=== PATIENT | female | born 1955 | race Two or more races ===

== ENCOUNTER 2025-01-14 20:47 | Emergency (ER) | payer OTHER, MEDICAID ==
[~2025-01-14] VITALS: Ht 160 cm; Wt 113.4 kg
[2025-01-15] MEDS ORDERED: HYDROMORPHONE 1 MG/1 ML DISP.SYRIN ONE ×4 (00:49→21:18)
[2025-01-15] MEDS ORDERED: ONDANSETRON ODT 4 MG TAB.RAPDIS ONE (00:49)
[2025-01-15] MEDS: HYDROMORPHONE 1 MG/1 ML DISP.SYRIN IM ONE (00:51)
[2025-01-15] MEDS: ONDANSETRON ODT 4 MG TAB.RAPDIS SL ONE (00:52)
[2025-01-15] MEDS ORDERED: PROPOFOL 200 MG/20 ML BOTTLE ONE (02:18)
[2025-01-15] MEDS: PROPOFOL 200 MG/20 ML BOTTLE IV ONE ×2 (02:38→02:55)
[2025-01-15] MEDS ORDERED: ONDANSETRON 4 MG/2 ML VIAL ONE ×3 (03:24→21:18)
[2025-01-15] MEDS: ONDANSETRON 4 MG/2 ML VIAL IV ONE ×3 (03:28→21:21)
[2025-01-15] MEDS: HYDROMORPHONE 1 MG/1 ML DISP.SYRIN IV ONE ×3 (03:28→21:21)
[2025-01-16] MEDS ORDERED: IV D5W-0.45% NS +20 KCL 1,000 ML IV ONE (02:12)
[2025-01-16] MEDS: IV D5W-0.45% NS +20 KCL 1,000 ML IV ONE (02:25)
[2025-01-16 02:27] LABS: PLATELET COUNT (AUTO) 295 K/uL (179-408); RED BLOOD CELL COUNT(AUTO) 4.72 MIL/uL (3.63-4.92); RED CELL DISTRIBUTION WIDTH 14.6 % (12.3-17.7); WHITE BLOOD COUNT (AUTO) 11.2 K/uL (3.8-11.8)
[2025-01-16 02:35] LABS: CREATININE 1.0 mg/dL (0.6-1.3); SODIUM SERUM 144.0 mmol/L (136-145); UREA NITROGEN, BLOOD 16.0 mg/dL (7-18)
[2025-01-16 02:40] LABS: ASPARTATE AMINOTRANSFERASE 18.0 U/L (15-37); TOTAL PROTEIN, SERUM 8.9 g/dL (6.4-8.2)
[2025-01-16] MEDS ORDERED: ONDANSETRON 4 MG/2 ML VIAL ONE (10:39)
[2025-01-16] MEDS ORDERED: HYDROMORPHONE 1 MG/1 ML DISP.SYRIN ONE (10:40)
[2025-01-16] MEDS: HYDROMORPHONE 1 MG/1 ML DISP.SYRIN IV ONE ×2 (10:45)
[2025-01-16] MEDS: ONDANSETRON 4 MG/2 ML VIAL IV ONE ×2 (10:46)
[2025-01-16 10:51] VITALS: BP 140/86; O2SAT 95
== END 2025-01-16 14:44 | disposition short-term general hospital (02) ==
LOC: ER 21:40
DX: S42.401A Unspecified fracture of lower end of right humerus, initial encounter for closed fracture (principal); M25.522 Pain in left elbow; X58.XXXA Exposure to other specified factors, initial encounter; Y93.89 Activity, other specified; Y92.89 Other specified places as the place of occurrence of the external cause; Y99.8 Other external cause status
CPT/HCPCS: 99285; 73200; 96375; 73080; 73070; 96376 ×2; 96372; 96365; 80053; 85025; 85610; 36415; J2405 ×4; J1171 ×5; J7040; A4606; A4663; J3490; Q0162